=== PATIENT | male | born 1995 | race African-American/Black ===

== ENCOUNTER 2021-05-07 23:35 | Emergency (ER) | payer SELFPAY ==
[~2021-05-07] VITALS: Ht 172.7 cm; Wt 70.3 kg
[2021-05-07 23:40] VITALS: BP 124/92
== END 2021-05-08 03:45 | disposition home or self-care (01) ==
LOC: EDBD 23:35 → ER 23:47
DX: U07.1 COVID-19 (principal); R06.02 Shortness of breath; J02.9 Acute pharyngitis, unspecified; R43.8 Other disturbances of smell and taste
CPT/HCPCS: 36415; 87426